=== PATIENT | male | born 1990 | race Caucasian/White ===

== ENCOUNTER 2022-05-09 21:52 | Emergency (ER) | payer BC, OTHER ==
[~2022-05-09] VITALS: Ht 182.9 cm; Wt 90.7 kg
[2022-05-09 22:41] VITALS: BP_SYST 118
[2022-05-10] MEDS ORDERED: IBUPROFEN 800 MG TABLET PO ONE (00:30)
[2022-05-10] MEDS ORDERED: ACET-2634 PO (00:33)
[2022-05-10] MEDS ORDERED: IBUP-1969 PO (00:33)
[2022-05-10 01:06] VITALS: BP_SYST 122
== END 2022-05-10 01:06 | disposition home or self-care (01) ==
LOC: SED 21:52
DX: S83.91XA Sprain of unspecified site of right knee, initial encounter (principal); Z79.899 Other long term (current) drug therapy; W18.40XA Slipping, tripping and stumbling without falling, unspecified, initial encounter; Y93.89 Activity, other specified; Y92.89 Other specified places as the place of occurrence of the external cause; Y99.8 Other external cause status
CPT/HCPCS: 73560-TC; 99283